=== PATIENT | female | born 2000 | race Caucasian/White ===

== ENCOUNTER 2023-10-28 22:29 | Emergency (ER) | payer OTHER, SELFPAY ==
[2023-10-28 22:40] VITALS: BP 147/85; PULSE 92; RESP 17; TEMP 36.1; O2SAT 100
[2023-10-29] VITALS (18 sets, daily range): BP systolic 128–142; BP diastolic 70–85; PULSE 80–90; RESP 14–18; TEMP 36.2–37.1; O2SAT 98–100
[2023-10-29 01:48] LABS: Alanine Aminotransferase 15 U/L (6-35); Albumin Level 4.9 g/dL (3.5-5.1); Alkaline Phosphatase 78 U/L (38-126); Anion Gap 16 mmol/L (4-12); Aspartate Amino Transferase 23 U/L (14-36); Basophils Percent Auto 0.3 % (0.2-1.2); Bilirubin,Total 1.3 mg/dL (0.2-1.3); Blood Urea Nitrogen 18 mg/dL (7-17); Calcium 9.8 mg/dL (8.4-10.2); Carbon Dioxide 21 mmol/L (22-30); Chloride 102 mmol/L (98-107); Eosinophils Absolute Auto 0.1 K/mm3 (0-0.3); Eosinophils Percent Auto 0.7 % (0-4.4); Estimated CRCL calculation 99 ml/min; Estimated Glomerular Filt Rate > 60; Glucose 80 mg/dL (65-110); Hematocrit 41.3 % (37.0-47.0); Hemoglobin 13.2 g/dL (12.0-15.0); Immature Granulocyte Absolute 0.03 K/mm3 (0.00-0.031); Immature Granulocyte Percent A 0.3 % (0-0.5); Lipase 93 U/L (23-300); Lymphocytes Absolute Auto 1.51 K/mm3 (0.9-3.2); Lymphocytes Percent Auto 17.6 % (18.3-44.2); Mean Corpuscular Hemoglobin 26.5 pg (26-34); Mean Corpuscular Volume 82.8 fl (80-100); Mean Platelet Volume 10.5 fl (7.4-10.4); Monocytes Absolute Auto 0.7 K/mm3 (0.1-0.6); Monocytes Percent Auto 8.6 % (2.6-8.5); Neutrophils Absolute Auto 6.2 K/mm3 (1.3-6.7); Neutrophils Percent Auto 72.5 % (45.5-73.1); Platelet Count Result 268 k/mm3 (150-375); Red Blood Count 4.99 M/mm3 (4.2-5.4); Red Cell Distribution Width 12.6 % (11.5-14.5); Sodium 139 mmol/L (137-145); White Blood Count 8.6 K/mm3 (4.5-10.0)
[2023-10-29 02:12] LABS: Add Urine Microscopic? YES; Appearance Urine Clear (Clear); Bacteria Urine None Seen /hpf; Bilirubin Urine Negative (Negative); Blood Urine Negative (Negative); Color Urine Yellow (Yellow); Glucose Urine UA Negative (Negative); Ketones Urine 4+ mg/dL (Negative); Leukocyte Esterase Ur Negative LEU/UL (Negative); Nitrate Urine Negative (Negative); Non Pathogenic Casts 0-2; Protein Urine 1+ mg/dL (Negative); RBC Urine 0-2 /hpf (0-2); Specific Grav Ur 1.036 (1.001-1.035); Squamous Epithelial Cell Urine None Seen /hpf (Few); WBC Urine 0-5 /hpf (0-3)
[2023-10-29] MEDS: PROCHLORPERAZINE EDISYLATE 10 MG/2 ML VIAL IV PUSH (03:04)
[2023-10-29] MEDS: SODIUM CHLORIDE 0.9% IV 200 ML 100 ML (03:04)
[2023-10-29] MEDS: SODIUM CHLORIDE 0.9% IV 1,000 ML 999 ML IV CONT ×2 (03:04→03:59)
[2023-10-29] MEDS: diphenhydrAMINE HCl INJ 50 MG/ML VIAL 25 MG IV PUSH (03:04)
[2023-10-29 04:03] LABS: BEDSIDEPREGUCG Negative
--- NOTE | 2023-10-29 04:45 | ED.GENADULT ---
HPI - General Adult General Chief complaint: Nausea/Vomiting/Diarrhea Stated complaint: vomiting Time Seen by Provider: 10/29/23 02:24 History of Present Illness HPI narrative: patient is a 23-year-old female presents emergency department with chief complaint of nausea vomiting. Patient reports that started having nausea vomiting on the had difficulty keeping anything down had some body aches. The patient recently started semaglutide on Tuesday patient reports that she has had no fevers the patient denies localizing abdominal pain Related Data Home Medications Medication Instructions Recorded Confirmed acetaminophen 300 mg-codeine 30 mg 1 tablet PO Q8H PRN 05/13/21 06/30/21 tablet ibuprofen 200 mg tablet 200 mg PO Q6H PRN 05/13/21 06/30/21 Allergies Allergy/AdvReac Type Severity Reaction Status Date / Time No Known Allergies Allergy Verified 10/28/23 22:44 Review of Systems Review of Systems: A 10 system review of systems was completed on the patient and is negative except for what is stated in the HPI. Nursing and ancillary documentation was reviewed. [facility] Past Medical History Medical History Chronic headaches Fracture of distal end of right fibula Weight gain Family History Family History Other Diabetes mellitus Heart disease Hypertension Lung cancer Social History Social History Alcohol intake: current Substance use: never Substance use type: does not use Living arrangements: with family Occupation/Education: student Gender identity (if verbalized by the patient): Female Exam Narrative: GENERAL: Well-appearing, well-nourished, and in no acute distress. HEAD: Normocephalic, atraumatic. EYES: PERRLA and EOMI. ENT: Nares clear, no rhinorrhea or epistaxis. Mucous membranes moist. NECK: Supple. CHEST: Clear to auscultation. No respiratory distress. HEART: Regular rate and rhythm. No murmur heard. Normal peripheral pulses. ABDOMEN: Soft, nontender, nondistended, normal active bowel sounds. EXTREMITIES: Normal range of motion. No edema. SKIN: Warm, dry, no rash. NEURO: No focal deficits. Alert and oriented x3. PSYCH: Normal mood and affect. Course Vital Signs Vital signs: Vital Signs Temperature 36.1 C L 10/28/23 22:40 Pulse Rate 92 10/28/23 22:40 Respiratory Rate 17 10/28/23 22:40 Blood Pressure 147/85 H 10/28/23 22:40 Pulse Oximetry 100 10/28/23 22:40 Oxygen Delivery Room Air 10/28/23 22:40 Temperature 36.2 C L 10/29/23 03:46 Pulse Rate 80 10/29/23 01:31 Respiratory Rate 14 10/29/23 01:31 Blood Pressure 140/85 10/29/23 03:46 Pulse Oximetry 100 10/29/23 03:46 Oxygen Delivery Room Air 10/28/23 22:40 Medical Decision Making MDM Narrative Medical decision making narrative: differential diagnosis includes gastroenteritis, dehydration, medication side effect, patient's exam was not consistent with appendicitis or acute intra-abdominal infection. Laboratory studies were obtained on the patient showed a CBC with white count of 8.6 electrolytes showed a BUN of 18 and gap is 16 glucose is normal liver enzymes are normal urinalysis showed 4+ ketones patient received 2 L normal saline boluses and received a p.o. challenge she also received antiemetics Vital Signs Vital Signs: Vital Signs Temperature 36.1 C L 10/28/23 22:40 Pulse Rate 92 10/28/23 22:40 Respiratory Rate 17 10/28/23 22:40 Blood Pressure 147/85 H 10/28/23 22:40 Pulse Oximetry 100 10/28/23 22:40 Oxygen Delivery Room Air 10/28/23 22:40 Temperature 36.2 C L 10/29/23 03:46 Pulse Rate 80 10/29/23 01:31 Respiratory Rate 14 10/29/23 01:31 Blood Pressure 140/85 10/29/23 03:46 Pulse Oximetry 100 10/29/23 03:46 Oxygen De
== END 2023-10-29 05:35 | disposition home or self-care (01) ==
PROVIDERS: Physician Assistant; Emergency Provider Emergency Medicine; PCP Family Medicine
DX: R11.2 Nausea with vomiting, unspecified (principal)
CPT/HCPCS: 36415; 80053; 81001; 81025; 83690; 85025; 96361; 96374; 96375; 99284; J0780; J1200; J7030

== ENCOUNTER 2025-02-20 10:09 | Outpatient (CLI) | payer OTHER, SELFPAY ==
--- OUTSIDE RECORDS SUMMARY | 2025-02-20 11:53 | XMS_ITS | Clinical Summary ---
Author Organization [facility] Address [address] [place] [address] Care Team Providers Care Strategic Partner Development Manager Name Role Phone Tremayne Gilmore MD Primary Care Provider [phone] Source Comments [facility],non-owned Affiliates and Associated Physician Practices is amultiple site organization consisting of ambulatory clinics and hospital sitesin [place], [place], [place] and [place]. This disclosure is being madepursuant to the Care Everywhere program and may not contain all information available regarding this patient. Last updated 17.[facility] Allergies No known active allergies Medications * Be aware that medications may not be up to date on this document. Alwaysverify current medications with the patient. 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 Gender Identity Not on file Sexual Orientation Not on file Last Filed Vital Signs Vital Sign Reading Time Taken Comments Blood Pressure 114/68 12/06/2019 2:52 PM CDT Pulse 84 12/06/2019 2:52 PM CDT Temperature 36.9 C (98.4 F) 12/06/2019 2:52 PM CDT Respiratory Rate 16 12/06/2019 2:52 PM CDT Oxygen Saturation 95% 12/06/2019 2:52 PM CDT Inhaled Oxygen Concentration - - Weight 83.8 kg (184 lb 12.8 oz) 12/06/2019 2:52 PM CDT Height 170 cm (5' 6.93) 12/06/2019 2:52 PM CDT Body Mass Index 29.01 12/06/2019 2:52 PM CDT Plan of Treatment Health Maintenance Due Date Last Done Comments HIV SCREENING 2017 HPV VACCINE (1 - 3-dose series) 2017 CHLAMYDIA/GONORRHEA SCREENING 2018 MENINGOCOCCAL (Group B) VACC INE SHARED DECISION-MAKING (1 of 2 - Standard) 2018 HEPATITIS C SCREENING 04/22/2020 DTAP/TDAP/TD VACCINES (1 - Tdap) 2021 HEPATITIS B VACCINE (1 of 3 - 19+ 3-dose series) 2021 DEPRESSION SCREENING 03/07/2024 COVID-19 VACCINE (1 - 2024-2 6 season) 2024 INFLUENZA VACCINE (#1) 2024 ZOSTER VACCINE (1 of 2) 2052 HIB VACCINE Aged Out No longer eligi ble based on patient's age to complete this topic MENINGOCOCCAL GROUPS A/C/Y/W VACCINE Aged Out No longer eligible b ased on patient's age to complete this topic PNEUMOCOCCAL VACCINE Aged Out No long er eligible based on patient's age to complete this topic Insurance ANTH Care Teams Strategic Partner Development Manager Relationship Specialty Start Date End Date Tremayne Gilmore MD [address] [place] [phone] PCP - General Family Medicine 03/14/16
== END 2025-02-20 10:10 | disposition home or self-care (01) ==
LOC: ANHSURGERY 10:17
PROVIDERS: PCP Family Medicine; Visit Provider Obstetrics & Gynecology
DX: Z01.818 Encounter for other preprocedural examination (principal); N83.209 Unspecified ovarian cyst, unspecified side
CPT/HCPCS: 36415; 86850; 86900; 86901

== ENCOUNTER 2025-02-21 00:40 | Day surgery (SDC) | payer OTHER, SELFPAY ==
[2025-02-15 14:42] VITALS: BMI 39.9
--- NOTE | 2025-02-15 14:50 | SUR.PREOP ---
[facility] has started construction of its new state of the art ER which will open Spring 2026. With this, we anticipate parking may be a challenge for some our surgical patients and families. Parking spaces are limited but are available for all Surgical, obstetrics, and ER patients sharing this lot. If you arrive and find you are having a hard time finding a parking space, please note that we understand the challenges, please drive around the hospital and park near Hospital Entrance 1. When you enter this entrance, you can ask a volunteer to direct or take you back to the surgical waiting area to check in. We appreciate everyone?s understanding of these expected challenges while we build for your future. Report to the Outpatient Waiting Room, entrance under the green pavilion located off [address], at time 8:00a.m. on date 02/21/2025. Planned Procedure Time: 10a.m..? Time changes happen often and if your time is changed the preop area will call you the afternoon before. - You and your visitor will be asked to self-screen and do not enter if you have any COVID symptoms. Please call surgeon if you need to reschedule. - A mask is optional within the hospital at this time. Patients may have clear liquids (water, carbonated beverages, clear teas, apple juice) until 3 hours prior to surgery with a maximum of 20 ounces. - No food from midnight until time of surgery and no smoking, or chewing tobacco (or any form of nicotine). No chewing gum, candy or mints. Take only the following medications with a SIP of water on the morning of surgery: Tylenol-codeine DO NOT STOP ANY OF YOUR OTHER PRESCRIPTION MEDICATIONS PRIOR TO SURGERY EXCEPT THE FOLLOWING Hold all vitamins and supplements for 3 days per anesthesiologist. Medications to discontinue per physician NONE Date to take last dose NONE Please no make-up, nail turkmen, hairspray, perfume, deodorant, or body powder the day of surgery.? No jewelry (including any body piercings) or valuables the day of surgery, leave them at home.? Please take a shower or bath the night before, or the morning of, surgery with an antibacterial soap.? Wear comfortable, loose fitting clothing.? Children are encouraged to wear pajamas. - Jewelry must be removed prior to entering the operating room.? Rings and piercings that are not removed may be cut off. - The hospital will not accept responsibility for valuables.? - Please leave all valuables, including medications, at home the day of surgery. If you are going home after surgery, a licensed truss driver helper must drive you home.? - NO public transportation without another adult if you receive anesthesia. - We recommend that an adult stay with you for 24 hours following discharge. - We also recommend that you do not drive, make important decision, drink alcoholic beverages, or take any drugs that were not prescribed by your health care provider for at least 24 hours after your discharge time. For Pediatric surgeries, we recommend two adults accompany the child home. Follow any additional instructions given to you from your surgeon. Telephone instructions given to Deja Monroe and asked if any additional questions and then verbalized understanding. Patient advised to call surgeon office or pre surgery nurse liaison [phone] if any additional questions.
--- NOTE | 2025-02-19 07:41 | PM.IMHP2 ---
H&P: HPI History of Present Illness Date/Time: 02/19/25 07:41 Chief Complaint: Pelvic pain with left ovarian cyst Narrative: A 24-year-old female admitted for laparoscopy cystectomy secondary to a large 4cm ovarian cyst and pelvic pain risks and benefits of this procedure reviewed including not exclusive of , aspiration pneumonia, bleeding, transfusion, perforation injury to bowel, bladder, ureters, or other internal organs with need for open laparotomy. She received the ACOG handout entitled laparoscopy. She had all questions answered. She asked to proceed. Review of Systems Review of Systems: A 10 system review of systems was completed on the patient and is negative except for what is stated in the HPI. Nursing and ancillary documentation was reviewed. [facility] Past Medical History Medical History Weight gain Fracture of distal end of right fibula Chronic headaches Family History Family History Other Diabetes mellitus Heart disease Hypertension Lung cancer Social History Social History Smoking status: Never smoker Alcohol intake: current Drinks per week: 2 Substance use: never Substance use type: does not use Living arrangements: with family Occupation/Education: student Gender identity (if verbalized by the patient): Female Spiritual care concerns: No Meds Home Medications and Allergies Home Medications ?Medication ?Instructions ?Recorded ?Confirmed ?Type acetaminophen 300 mg-codeine 30 mg 1 tablet PO Q8H PRN pain 05/13/21 02/15/25 History tablet ibuprofen 200 mg tablet 200 mg PO Q6H PRN pain 05/13/21 02/15/25 History phentermine 37.5 mg tablet 37.5 mg PO DAILY 02/15/25 02/15/25 History Allergies Allergy/AdvReac Type Severity Reaction Status Date / Time No Known Allergies Allergy Verified 02/15/25 14:40 Exam Narrative: GENERAL: Well-appearing, well-nourished, and in no acute distress. HEAD: Normocephalic, atraumatic. EYES: PERRLA and EOMI. ENT: Nares clear, no rhinorrhea or epistaxis. Mucous membranes moist. NECK: Supple. CHEST: Clear to auscultation. No respiratory distress. HEART: Regular rate and rhythm. No murmur heard. Normal peripheral pulses. ABDOMEN: Soft, nontender, nondistended, normal active bowel sounds. EXTREMITIES: Normal range of motion. No edema. SKIN: Warm, dry, no rash. NEURO: No focal deficits. Alert and oriented x3. PSYCH: Normal mood and affect. : External Female Exam: normal external appearance Speculum Exam - Vagina: normal appearance of the vagina Speculum Exam - Cervix: normal appearance of the cervix Bimanual exam- vagina & uterus: non-tender Bimanual Exam- Adnexa, other: Adnexal mass present on the left tender Assessment and Plan Assessment and plan (1) Pelvic pain: Code(s): R10.20 - Pelvic and perineal pain unspecified side Status: Acute (2) Left ovarian cyst: Code(s): N83.202 - Unspecified ovarian cyst, left side Status: Acute Plan Proceed with laparoscopic left cystectomy unlikely oophorectomy
[2025-02-21] VITALS (11 sets, daily range): BP systolic 110–131; BP diastolic 63–90; PULSE 64–92; RESP 15–21; TEMP 36.4; O2SAT 96–100
--- OUTSIDE RECORDS SUMMARY | 2025-02-21 00:44 | XMS_ITS | Clinical Summary ---
Author Organization [facility] Address [address] [place] [address] Care Team Providers Care Capacity Management Specialist Name Role Phone Tremayne Gilmore MD Primary Care Provider Source Comments [facility] [employer] [facility],non-owned Affiliates and Associated Physician Practices is amultiple site organization consisting of ambulatory clinics and hospital sitesin [place], [place], [place] and [place]. This disclosure is being madepursuant to the Care Everywhere program and may not contain all information available regarding this patient. 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
--- NOTE | 2025-02-21 06:37 | WPDHPUPDATE1 ---
History and Physical Update Update Date/Time: 02/21/25 06:37 History and Physical has been reviewed, including an updated exam of the patient. There are NO changes in the patient's condition. Risks, benefits, and alternatives have been discussed and questions answered. Patient agrees to proceed with procedure.
[2025-02-21] MEDS: ACETAMINOPHEN 500 MG TABLET 1000 MG PO (08:15)
[2025-02-21] MEDS: LACTATED RINGERS 1,000 ML 30 ML IV CONT (08:20)
[2025-02-21] MEDS: SCOPOLAMINE 1 MG PATCH 1 PATCH TRANSDERM (08:25)
[2025-02-21] MEDS: KETOROLAC 15 MG/ML VIAL (*BKC) IV PUSH (08:25)
[2025-02-21 09:01] LABS: BEDSIDEPREGUCG Negative (Negative)
--- NOTE | 2025-02-21 10:20 | P.OP_ITS ---
Procedure Note - Detailed Date of Procedure 02/21/25 Pre-op Diagnosis pelvic pain, left ovarian cyst Post-op Diagnosis Other (Pelvic pain/endometriosis/left ovarian cyst) Procedure Performed Laparoscopy with destruction of endometriosis and destruction of left ovarian cyst Surgeon Migue Yoo MD Anesthesia General Indications 24-year-old female with left ovarian cyst and chronic pelvic pain Findings A small simple left ovarian cyst. Normal-appearing gallbladder appendix and liver edge. Normal-appearing uterus and tubes. Endometriosis and powder burn and blister formed along the left and right uterosacral ligaments Description of Procedure The patient was prepped draped in sterile fashion placed in the dorsal lithotomy position. Excellent general trach anesthesia weighted speculum placed in po sterior fornix vagina. Anterior lip of the cervix grasped with single-tooth tenaculum. Pemberton's cannula inserted the cervix and attached to the single-tooth to be used later for uterine manipulation. After emptying bladder clear urine the weighted speculum was removed the gloves were changed. A supraumbilical incision made the Veress needle passed in the abdomen. Abdomen with CO2 gas to 15 of mercury. The 5mm trocar advanced under direct visualization assuring patient placed in Trendelenburg and a suprapubic incision made. The 5mm trocar advanced under direct visualization assuring injury. The above findings were seen the areas of endometriosis were cauterized at 35 w per 2nd with monopolar cautery. The photo documentation was taken the small ovarian cyst on the left was opened and drained of clear follicular fluid. Irrigation was undertaken. The gas removed from the abdomen. The trocars removed the incisions closed with 4 Monocryl and glue. Instruments removed from the vagina. Patient went recovery in satisfactory condition. All sponge, needle, instrument counts were correct. There were no immediate complications Estimated Blood Loss 5 Drains No Packing No Pathology None sent Complications No immediate complications Condition Stable Disposition PACU
--- NOTE | 2025-02-21 10:36 | P.PNAN_ITS ---
Anes - Initial Pre Proc Eval Procedure: Operation Date: 02/21/25 10:00 Proposed Procedures p Laparoscopic Left Ovarian Cystectomy - Migue Yoo MD Date/Time: 02/21/25 10:36 Surgeon: Mgiue Yoo MD Pre Op Diagnosis: pelvic pain, left ovarian cyst Patient Data Age: 24 Gender: F Height: 1.65 m Weight: 106.6 kg Last Vital Signs Temp 36.4 C L 02/21/25 08:00 Pulse 92 02/21/25 08:00 Resp 16 02/21/25 08:00 BP 131/78 02/21/25 08:00 Pulse Ox 100 02/21/25 08:00 O2 Del Method Room Air 02/21/25 08:00 Allergies Allergy/AdvReac Type Severity Reaction Status Date / Time No Known Allergies Allergy Verified 02/15/25 14:40 Home Medications ?Medication ?Instructions ?Recorded ?Confirmed ?Type acetaminophen 300 mg-codeine 30 mg 1 tablet PO Q8H PRN pain 05/13/21 02/15/25 History tablet ibuprofen 200 mg tablet 200 mg PO Q6H PRN pain 05/1302/15/25 History phentermine 37.5 mg tablet 37.5 mg PO DAILY 02/15/25 1 04/18/24 History hydrocodone 5 mg-acetaminophen 325 1 tablet PO Q4H PRN pain #20 tabs 02/21/25 Rx mg tablet Laboratory Tests 02/21/25 08:27 POC Urine HCG, Qual Negative (Negative) Patient hx anesthesia problems: none Family hx anesthesia problems: none Results Review: All pre-operative results and documents have been reviewed as part of the pre- operative evaluation. [facility] Past Medical History Medical History Weight gain Fracture of distal end of right fibula Chronic headaches Family History Family History Other Diabetes mellitus Heart disease Hypertension Lung cancer Social History Social History Smoking status: Never smoker Alcohol intake: current Drinks per week: 2 Substance use: never Substance use type: does not use Living arrangements: with family Occupation/Education: student Gender identity (if verbalized by the patient): Female Spiritual care concerns: No Anes - Eval Final PreProcedure Day of Procedure 02/21/25 10:36 Patient weight: obese Heart: regular rate and rhythm Lungs: clear to auscultation Airway: Mallampati scale class II Neurological: alert and oriented Last oral intake: >/= 8 hours ASA classification: II Emergent: no Anesthetic plan: proceed Anesthesia type and monitoring: general ETT and standard monitoring Results Review: All pre-operative results and documents have been reviewed as part of the pre- operative evaluation. Informed Consent: The patient's anesthetic plan and its attendant risks and benefits were discussed with the patient/family/POA. Questions were solicited and answers provided to the satisfaction of the patient/family/POA.
[2025-02-21] MEDS: fentaNYL CITRATE INJ (*CRX) 100 MCG/2 ML VIAL 25 MCG IV PUSH ×2 (11:31→11:35)
[2025-02-21] MEDS: oxyCODONE HCL (*CRX) 5 MG TAB IR PO (12:09)
== END 2025-02-21 13:03 | disposition home or self-care (01) ==
PROVIDERS: PCP Family Medicine; Visit Provider Obstetrics & Gynecology
PROC: (CPT 49320; principal; 2025-02-21 10:00)
DX: N83.292 Other ovarian cyst, left side (principal); N80.3C3 Endometriosis of bilateral uterosacral ligament(s), unspecified depth; R51.9 Headache, unspecified; E66.9 Obesity, unspecified; Z68.39 Body mass index [BMI] 39.0-39.9, adult; Z79.891 Long term (current) use of opiate analgesic; Z79.1 Long term (current) use of non-steroidal anti-inflammatories (NSAID); Z80.1 Family history of malignant neoplasm of trachea, bronchus and lung; Z82.49 Family history of ischemic heart disease and other diseases of the circulatory system
CPT/HCPCS: 58662; A9270; J1100; J1885; J2003; J2250; J2405; J2704; J3010; J7120